=== PATIENT | male | born 1945 | race Caucasian/White ===

== ENCOUNTER 2025-05-06 21:21 | Emergency (ER) | payer MEDICARE, OTHER, SELFPAY ==
[2025-05-06 21:26] VITALS: BP 154/83
[2025-05-06 22:45] VITALS: BMI 28.9
[2025-05-06 22:47] VITALS: BP 132/70
[2025-05-06 23:10] LABS: Urine Character Clear (Clear)
[2025-05-06 23:11] LABS: Hematocrit 35.0 % (39.0-52.0); Hemoglobin 11.2 g/dL (13.0-18.0); Mean Corp Hgb Conc. 32.0 g/dL (33.0-37.0); Mean Corpuscular Volume 59.8 fL (80.0-94.0); Nucleated Red Blood Cells % 0 % (-); Platelet Count 182 10^3/uL (130-400); Red Cell Dist. Width 16.2 % (11.5-14.5)
[2025-05-06 23:26] LABS: ALT (SGPT) 16 U/L (0-50); AST (SGOT) 24 U/L (17-59); Albumin 4.2 g/dl (3.5-5.0); Alkaline Phosphatase 66 U/L (38-126); Blood Urea Nitrogen 19 mg/dl (9-20); Calcium 9.1 mg/dl (8.4-10.2); Carbon Dioxide 24 mmol/L (22-30); Chloride 105 mmol/L (98-107); Estimated Creatinine Clearance 49 ml/min; Glucose 91 mg/dl (70-99); Potassium 3.2 mmol/L (3.5-5.1); Sodium 139 mmol/L (135-145); Total Protein 6.8 g/dl (6.3-8.2); eGFR > 60.00
--- NOTE | 2025-05-06 23:52 | ED.GENMED ---
History of Present Illness
General
Chief Complaint: Flank Pain
Source: patient and spouse
Exam Limitations: none
Time Seen by Provider: 05/06/25 23:30
Nursing documentation reviewed up to this point in time: agreed with
History of Present Illness
History of Present Illness:
HISTORY OF PRESENT ILLNESS
The patient is a 79-year-old male presenting with acute right-sided back pain. The pain began suddenly and was described as intense and persistent, causing restlessness and an inability to find a comfortable position. It was also associated with
nausea and emesis upon arrival, after which the pain subsided. There was no hematuria reported by the patient. This is the first occurrence of this type of pain. The patient denies prior experiences of similar pain. There is a history of mild anemia
with beta-thalassemia minor as well as history of hypertension, hypothyroidism, diverticulitis. Remote history of prostate cancer status post prostatectomy. No history of recurrence. He also has history of partial colon resection for
diverticulitis. No prior history of kidney stones. Prior to tonight he had been feeling well.
His daily medications include: Nifedipine, levothyroxine, omeprazole, hydrochlorothiazide.
Past History
Past History
ED Past Medical History: Cancer (Prostate status post prostatectomy. No history of recurrence), HTN, Hypothyroidism, Other (Diverticulitis with history of colon resection.) and Other (Thalassemia minor)
ED Past Surgical History: Bowel resection (Colon resection for diverticulitis), Cholecystectomy and Urological (Prostate cancer)
Social History
Tobacco: Non-smoker
Alcohol: None
Drug: None
Personal:
Living: with family
Employment: Retired
Family History
Family History: Other (Noncontributory)
Phy Exam
Physical Exam
Physical Exam:
GENERAL: 79-year-old gentleman appears his stated age. Bright alert, pleasant, appears in no acute distress. is accompanying.
EYE: anicteric
NECK: Supple, nontender, no meningismus, no significant adenopathy.
ENT: oral mucosa is moist. No rhinorrhea.
CARDIAC: Regular rate and rhythm. no murmur.
LUNGS: Clear breath sounds bilaterally, no acute respiratory distress, no wheezes/rales/rhonchi
ABDOMEN: Soft, nondistended, without focal tenderness, no r/g, no cvat. normoactive BS.
NEUROLOGICAL: Alert and oriented x3, no focal neuro deficits. Gait is pierce and steady.
SKIN: Warm and dry, normal color, skin intact. No rash.
MUSCULOSKELETAL: No C/C/E. peripheral pulses are full and equal b/l. No palpable tenderness.
PSYCH: Normal and appropriate interaction.
Course
Orders/Labs/Results
Orders:
Orders
05/06/25 22:58
Comprehensive Metabolic Panel Urgent
05/06/25 22:59
Complete Blood Count/With Diff Urgent
Urinalysis Reflex To Culture Urgent
Date Specimen was Collected: 05/06/25
Time Specimen was Collected: 22:55
Urine Microscopic Reflex Cult Urgent
Urine Culture Urgent
ELISA Source: U
Specimen Description:
Date Specimen was Collected: 05/06/25
Time Specimen was Collected: 22:55
05/07/25
CT Abd/pelvis W Iv Cont Urgent
Reason For Exam: acute severe back pain/ R flank pain
Abnormal Lab Results
05/06/25 05/06/25
22:58 22:59
Hgb 11.2 L g/dL
(13.0-18.0)
Hct 35.0 L %
(39.0-52.0)
MCV 59.8 L fL
(80.0-94.0)
MCH 19.1 L pg
(27.0-31.0)
MCHC 32.0 L g/dL
(33.0-37.0)
RDW 16.2 H %
(11.5-14.5)
Potassium 3.2 L mmol/L
(3.5-5.1)
Urine Ketones 1+ A
(Negative)
Ur Occult Blood Reflex 4+ A
(Negative)
Urine RBC >100 A /HPF
(0-2)
Urine Bacteria (Reflex) Many A
(Negative)
Urine Albumin (Reflex) 1+ A
(Neg - Trace)
05/06/25 22:59
05/06/25 22:58
Vital Signs
Initial and Last Documented VS:
Initial Vital Signs
Temp Pulse Resp BP Pulse Ox
97.6 F 69 16 154/83 95
05/06/25 21:26 05/06/25 21:26 05/06/25 21:26 05/06/25 21:26 05/06/25 21:26
Last Documented Vital Signs
Temp Pulse Resp BP Pulse Ox
97.6 F 58 18 138/75 96
05/06/25 21:26 05/07/25 01:50 05/07/25 01:50 05/07/25 01:50 05/07/25 01:50
MDM/Problems Addressed
Differential Diagnosis Includes:
DIFFERENTIAL DIAGNOSIS
The Differential Diagnosis includes, in no particular order and is not limited to:
1. Nephrolithiasis (Kidney stones)
2. Small bowel obstruction
3. Acute renal colic
4. Gallbladder disease
5. Acute pancreatitis
6. Musculoskeletal pain
7. Abdominal aortic aneurysm
8. Appendicitis
9. Pyelonephritis
10. Biliary colic
MDM/Problems Addressed:
Acute right flank pain accompanied with restlessness, nausea and 1 episode of vomiting. Has since resolved.
I suspect renal colic but with previous abdominal surgeries must consider small bowel obstruction. With history of hypertension, must consider abdominal aortic aneurysm/aortic dissection.
Labs thus far reveal mild anemia with microcytic indices consistent with history of thalassemia minor.
Chemistries are unremarkable save for mild hypokalemia.
Urinalysis shows +4 blood, +1 ketones.
Will plan for CT abdomen pelvis with IV contrast.
Continue to observe for return of pain.
Chronic conditions affecting care: HTN, Previous abdomnial surgery and Cancer
*Radiology
Radiology exam reviewed: radiology read reviewed
*Pulse Oximetry
SaO2: 95
Oxygen Mode of Delivery: Room air
Patient hypoxic: no
*Critical Care Note
Total Time (30-74mins, 75-104mins- exclusive of procedures): Not Applicable
Update Note
Update Note:
01:45
Patient remains pain-free and comfortable.
CAT scan shows a 4 mm nonobstructing stone in the distal portion of the right renal pelvis. No hydronephrosis nor ureteral stones at this time. Concern that stone could be intermittently obstructing at right UPJ.
He remains pain-free and comfortable.
Will discharge to home with referral to urology for follow-up.
ED Attending Note
-
Portions of this chart may have been created with voice recognition software.� Occasional wrong word or��sound alike� substitutions may have occurred due to the inherent limitations of voice recognition software.
Discharge Plan
Departure
Patient Disposition: Home (Routine Discharge)
Date of Disposition: 05/07/25
Time of Disposition: 01:48
Patient with high blood pressure during this ER visit?: No
Condition: Good
Discharge Problem:
acute right sided renal colic , Calculus of renal pelvis
Instructions: Kidney Stones (DC)
Referrals:
AMBROSIO ARAUZ MD [Family Provider]
Parrish Marquis Jr., MD [Active, Urology] - Call in 1-3 days for appt
Interventions
Interventions:
*General Assessment Last Done: 05/06/25 22:45
*Neglect/Abuse Screening Last Done: 05/06/25 21:28
*ED COVID-19 Vaccine History Last Done: 05/06/25 22:45
*ED Influenza Vaccine History Last Done: 05/06/25 22:45
[facility] Risk Assessment Tool Last Done: 05/06/25 22:48
*Risk Screen - Suicide (C-SSRS) Last Done: 05/06/25 21:28
*Nursing Disposition Last Done: 05/07/25 01:50
QD-Heysfy-Ektominutx Assessment Last Done: 05/06/25 22:50
ED-Male Genitourinary Assessment Last Done: 05/06/25 22:50
Discharge Date and Time
Discharge Date/Time: 05/07/25 01:52
Print Language: [id number]
[2025-05-07 00:17] LABS: Urine Red Blood Cell >100 /HPF (0-2); Urine Squamous Cell >30 /LPF (Few)
[2025-05-07 00:53] VITALS: BP 135/72
[2025-05-07 01:50] VITALS: BP 138/75
[2025-05-07 02:26] VITALS: BP 138/75
== END 2025-05-07 01:52 | disposition home or self-care (01) ==
LOC: EMR 21:21
PROVIDERS: Emergency Medicine; EMERGENCY PHYSICIAN Emergency Medicine; FAMILY PHYSICIAN Internal Medicine
DX: R10.A1 Flank pain, right side (principal); R11.2 Nausea with vomiting, unspecified; N20.0 Calculus of kidney; I10 Essential (primary) hypertension
CPT/HCPCS: 99285; 74177; 80053; 81003; 81015; 85025; 87086; Q9967